=== PATIENT | female | born 1985 | race Caucasian/White ===

== ENCOUNTER 2018-06-13 22:24 | Emergency (ER) | payer OTHER ==
[~2018-06-13] VITALS: Ht 154.9 cm; Wt 103.4 kg
[2018-06-13 22:27] VITALS: BP 129/86
[2018-06-14 00:33] VITALS: BP 125/84
== END 2018-06-14 00:34 | disposition home or self-care (01) ==
LOC: MED 22:24
DX: N76.0 Acute vaginitis (principal)
CPT/HCPCS: 81002; 81025; 87070; 87205; 87210; 99284

== ENCOUNTER 2019-01-17 21:02 | Emergency (ER) | payer OTHER ==
[~2019-01-17] VITALS: Ht 157.5 cm; Wt 108.0 kg
[2019-01-17 21:05] VITALS: BP 114/68
--- NOTE | 2019-01-17 21:05 | NUR ---
TO BED # 11 AMBULATORY
--- NOTE | 2019-01-17 21:09 | NUR ---
EKG BEING PERFORMED AT BEDSIDE
--- NOTE | 2019-01-17 21:16 | NUR ---
33 Y/O F PRESENTS TO THE ED W/C/O CHEST PAIN THAT STARTED AT 1800 AT WORK. PT STATES IT MOSTLY HAPPENS WHEN SHE LIFTS THINGS. PT ALSO STATES HX OF GERD AND HX OF CHEST PAIN BUT THIS TIME FEELS DIFFERENT. PT SPEAKING IN FULL SENTENCES. NAD NOTED. RR EVEN/UNLABORED. CAP REFILL<3. NAIL BEDS PINK IN COLOR. +CMS. PT DENIES N/V/D; SKIN IS INTACT, PINK/WARM/DRY; AAOX4, PERRL, WITH EVEN AND STEADY GAIT; HR EVEN AND REGULAR, BL PERIPHERAL PULSES PRESENT; BS ACTIVE X4, NO TENDERNESS TO PALPATION; PT DENIES ANY FEVER, SOB, OR COUGH AT THIS TIME; PT STATES 8/10 PAIN AT THIS TIME; VSS; PATIENT POSITIONED FOR COMFORT; HOB ELEVATED; BEDRAILS UP X2; BED DOWN.
[2019-01-17] MEDS ORDERED: KETOROLAC 60 MG/2 ML VIAL IM ONE (21:35)
[2019-01-17 22:38] VITALS: BP 116/62
--- NOTE | 2019-01-17 22:38 | NUR ---
Patient discharged with v/s stable. Written and verbal after care instructions given and explained. Patient alert, oriented and verbalized understanding of instructions. Ambulatory with steady gait. All questions addressed prior to discharge. ID band removed. Work excuse provided until 01/18/19. Patient advised to follow up with PMD. Rx of Prilosec 40mg and Motrin 800mg given. Patient educated on indication of medication including possible reaction and side effects. Opportunity to ask questions provided and answered.
== END 2019-01-17 22:38 | disposition home or self-care (01) ==
LOC: MED 21:02
DX: R07.89 Other chest pain (principal); K21.9 Gastro-esophageal reflux disease without esophagitis
CPT/HCPCS: 71045; 93005; 96372; 99283; J1885; Q0092

== ENCOUNTER 2020-09-11 16:59 | Emergency (ER) | payer OTHER ==
[~2020-09-11] VITALS: Ht 154.9 cm; Wt 113.4 kg
[2020-09-11 17:01] VITALS: BP 134/97
[2020-09-11 18:07] LABS: BASOPHILS % (AUTO) 0.3 % (0.0-2.0); EOSINOPHILS # (AUTO) 0.1 K/uL (0-0.4); EOSINOPHILS % (AUTO) 0.4 % (0.0-4.0); HEMATOCRIT 37.3 % (36-48); HEMOGLOBIN 12.5 g/dL (12.0-16.0); LYMPHOCYTES # (AUTO) 1.9 K/uL (2.5-16.5); LYMPHOCYTES % (AUTO) 13.3 % (20.5-51.1); MEAN CORPUSCULAR HEMOGLOBIN 27 pg (27-31); MEAN CORPUSCULAR HGB CONC 34 g/dL (33-37); MEAN CORPUSCULAR VOLUME 80.7 fL (80-94); MONOCYTES # (AUTO) 0.9 K/uL (0.8-1.0); MONOCYTES % (AUTO) 6.1 % (1.7-9.3); NEUTROPHILS # (AUTO) 11.3 K/uL (1.8-7.7); NEUTROPHILS % (AUTO) 79.9 % (42.2-75.2); PLATELET COUNT (AUTO) 279 K/uL (140-450); RED BLOOD CELL COUNT(AUTO) 4.61 MIL/uL (4.20-5.40); RED CELL DISTRIBUTION WIDTH 15.4 % (11.6-13.7); WHITE BLOOD COUNT (AUTO) 14.2 K/uL (4.8-10.8)
[2020-09-11] MEDS ORDERED: ALUMINUM HYD/MAG/SIMETHICONE 30 ML UDC PO ONE (18:20)
[2020-09-11] MEDS ORDERED: FAMOTIDINE 20 MG TAB PO ONE (18:20)
[2020-09-11 18:21] LABS: ALBUMIN 3.5 g/dL (3.4-5.0); ANION GAP 13.4 (8-16); CARBON DIOXIDE 27.3 mmol/L (21-32); CREATININE 0.8 mg/dL (0.6-1.3); POTASSIUM 3.7 mmol/L (3.5-5.1); TOTAL BILIRUBIN 0.2 mg/dL (0.0-1.0)
[2020-09-11] MEDS: MORPHINE SULFATE 4 MG/ML SYR IM ONE ×2 (18:27→19:03)
[2020-09-11 19:36] VITALS: BP 131/84
== END 2020-09-11 19:37 | disposition home or self-care (01) ==
LOC: MED 16:59
DX: R10.13 Epigastric pain (principal); R11.2 Nausea with vomiting, unspecified; K80.20 Calculus of gallbladder without cholecystitis without obstruction; K80.50 Calculus of bile duct without cholangitis or cholecystitis without obstruction
CPT/HCPCS: 36415; 76705; 80053; 81002; 81025; 83690; 85025; 99284; J2270